=== PATIENT | male | born 1930 | race Caucasian/White ===

== ENCOUNTER 2016-07-15 09:50 | Emergency (ER) | payer MEDICARE ==
[2016-07-15 09:50] VITALS: BMI 20.2
[2016-07-15] MEDS ORDERED: SODIUM CHLORIDE 0.9% 3 ML FLUSH FLUSH PRN (09:55)
[2016-07-15] MEDS ORDERED: ONDANSETRON HCL 4 MG/2 ML VIAL IV ONE (10:04)
[2016-07-15] MEDS ORDERED: HYDROmorphone 1 MG INJECTION IV ONE (10:04)
--- NOTE | 2016-07-15 10:08 | EDPRACDOC ---
- General Information Stated Complaint: VOMITING,DIZZINESS Time Seen by Provider: 07/15/16 09:55 Information Source: Patient Mode Of Arrival: Ambulance Home Medications: Home Medications Amlodipine [Norvasc] 5 mg PO DAILY 03/08/15 Ascorbic Acid [Vitamin C] 250 mg PO BID #120 tablet 08/12/15 Gabapentin [Neurontin] 800 mg PO TID 05/13/16 Bethanechol [Urecholine] 25 mg PO ACHS #60 tab 05/20/16 Albuterol/Ipratropium Neb [Duoneb] 3 ml NEB Q3H PRN #30 nebu 06/14/16 Albuterol/Ipratropium Neb [Duoneb] 3 ml NEB RTQ6 #30 nebu 06/14/16 Ensure [Ensure Plus (Chocolate)] 240 ml PO 1000,1400 #60 can 06/14/16 Morphine Sulfate 7.5 - 15 mg PO BID PRN #10 tablet 06/14/16 Zaleplon [Sonata] 10 mg PO HS PRN #30 capsule 06/14/16 Levalbuterol [Xopenex Hfa] 1 puff INH Q6 07/15/16 Levofloxacin [Levaquin] 750 mg PO DAILY #10 tab 07/15/16 Pantoprazole Sodium [Protonix] 40 mg PO HS 07/15/16 Promethazine [Phenergan] 25 mg PO Q6-8H PRN #20 tab 07/15/16 Allergies/Adverse Reactions: Allergies Allergy/AdvReac Type Severity Reaction Status Date / Time latex Allergy Rash-Locali Verified 07/15/16 10:21 zed - History of Present Illness 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 HE STATES THAT HE TAKES MORPHINE DAILY FOR CHRONIC BACK PAIN AND HAS NOT HAD ANY SINCE YESTERDAY AND HASNT HAD ANY OF HIS MEDICATIONS SINCE YESTERDAY DUE TO N/V. PT IS WRITHING AROUND IN THE BED AND STATES HE DOES THIS ON A NORMAL BASIS DUE TO HIS CHRONIC BACK PAIN. PT'S SPEECH DOES SEEM MILDLY SLURRED BUT DO NOT KNOWN HIS BASELINE. PUPILS ARE CONSTRICTED AT THIS TIME. Symptoms Occured: Reports: Spontaneous Duration: Reports: Since Onset, Episodes of Vomiting (1-2) Emesis: Reports: Bilious Recent: Reports: None Pain Quality: Reports: Aching Pain Severity: Moderate (CHRONIC BACK PAIN) Associated Signs and Symptoms: Reports: Nausea, Vomiting Oral Intake: Decreased Urinary Output: Normal ED Past Medical History - History Reviewed Yes Nurses notes reviewed and agree except as marked Travel Outside of [place] in the Last 3 Months?: No - Patient Medical History Neurological History: Denies: Cerebrovascular Accident, Seizures Cardiac History: Reports: Coronary Artery Disease, Atrial Fibrillation, Hypertension, Congestive Heart Failure, Heart Attack (1991), Hypercholesterolemia, Valvular Heart Disease Respiratory History: Reports: COPD, Pneumonia, Emphysema. Denies: Asthma, Pulmonary Embolism GI/ History: Reports: Renal Disease, Renal Failure, Urinary Tract Infection, Gastroesophageal Reflux, Ulcer, Diverticulosis. Denies: Pancreatitis Musculoskeletal History: Reports: Arthritis Psychological History: Reports: Depression, Anxiety. Denies: Substance Use Disorder Systemic History: Reports: Anemia. 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 Morphine pump placed in removed.). Denies: Tonsillectomy/Adnoidectomy - Family Medical History Reports: Hypertension, Cardiac Disorders (mother with [place]) - Social Medical History Smoking Status: Former smoker Social History: Denies: Substance Use Disorder ETOH: None Substance Abuse: None Lives With: Other Lives In: Home EDM Review of Systems - Review of Systems ROS Negative Except as Marked: Yes All systems reviewed and were negative except as marked ROS Unobtainable: Yes Hx Limited due to age/level of understanding of patient ( HPI DIFFICULT, PT POOR HISTORIAN) Constitutional: No Symptoms Reported. negative: Fever, Chills, Weakness, Fatigue, Loss of Appetite Eyes: No Symptoms Reported. negative: Redness, Blurred Vision, Double Vision, Discharge, Pain, Light Sensitive, Photophobia Ears: No Symptoms Reported. negative: Pain, Hearing Loss, Drainage, Ear Pulling Throat: No Symptoms Reported. negative: Pain, Swelling Nose: No Symptoms Reported. negative: Congestion, Bleeding, Discharge, Injection, Swelling, Deformity, Ecchymosis, Tender, Abrasion, Laceration Mouth: No Symptoms Reported. negative: Pain, Drooling Respiratory: No Symptoms Reported. negative: Cough, Brassy Cough, Barky Cough, Shortness of Breath, Wheezing, Hemoptysis Cardiovascular: No Symptoms Reported. negative: Chest Pain, Palpitations, Syncope, Edema, Orthopnea, PND, Skin Mottling, Cyanosis Gastrointestinal: No Symptoms Reported. negative: Pain, Constipation, Nausea, Vomiting, Diarrhea, Melena, Formula Intolerance Genitourinary: No Symptoms Reported. negative: Dysuria, Hematuria, Frequency, Discharge, Bleeding, Testicular Pain, Neurological: No Symptoms Reported. negative: Headache, Dizziness, Seizure, Numbness, Weakness, Speech Difficulty, Gait Difficulty Musculoskeletal: Back (CHRONIC BACK PAIN, NO PAIN MEDS IN 1-2 DAYS). negative: Arm, Ankle, Chestwall, Elbow, Forearm, Femur, Foot, Hand, Hip, Knee, Leg, Neck, Pelvis, Ribs, Shoulder, Wrist Integumentary: No Symptoms Reported. negative: Itching, Rash, Bruising, Wound Allergic/Immunologic: No Symptoms Reported. negative: Hives, Itching Hematologic: No Symptoms Reported. negative: Lymphadenopathy, Easy Bruising, Easy Bleeding Endocrine: No Symptoms Reported. negative: Weight Gain, Weight Loss Psychiatric: No Symptoms Reported. negative: Anxiety, Depression, Hallucinations, Insomnia, Suicidal - Physical Exam Constitutional: Alert (UNCOMFORTABLE) Oriented to: Time, Person, Place Last recorded Vital Signs: Oxygen Pulse Oxygen Saturation O2 Device Oxygen Flow Rate Fraction of Inspired Oxygen ( FIO2) - HEENT Head: Normal Eye Exam: Normal Oropharynx: Normal Tympanic Membrane: Normal ENT EAC: Normal TMJ: Normal Nose: No Symptoms Reported Neck: Normal - Respiratory/Cardiovascular Respiratory: Normal - CTA (BBS clear to auscultation without adventitious sounds ) Cardiovascular: Normal - GI Auscultation: Normal Palpation: Normal Tenderness: Non tender Finn's Sign: Negative Stool: Brown - Bladder: Normal - Musculoskeletal Back: Lumbar TTP Extremities: Normal - Integumentary Skin: Normal Lymphatics: Normal - Neurologic Memory Impaired: Normal Motor Function: Normal Cranial Nerve: Normal, Other (CN II-XII INTACT) Cerebellar: Other (WRITHING AROUND IN BED DIFFICULT TO TEST) Mood Description: Normal Thought: Coherent Perception: Normal - Differential Diagnosis Pneumonia, Urinary tract infection, Other (VERTIGO, CVA,TIA, NARCOTIC WITHDRAWAL ) - Re-evaluation Re-evaluation 1 Re-evaluation Time: 11:10 (PT SIGNIFICANTLY BETTER AFTER IV DILAUDID. ) Re-evaluation 2 Re-evaluation Time: 12:36 (PT APPEARS TO BE FEELING BETTER NOT WRITHING AROUND IN BED. WILL START LEVAQUIN PO FOR PNEUMONIA ON CXR.) - Results 07/15/16 10:10 07/15/16 10:10 - EKG EKG #1 EKG Time: 10:06 -: Yes EKG interpreted by me Rate: bpm: 86 [place]: LAD Rhythm: NSR Block: RBBB (INCOM) Hypertrophy: LVH ST: Normal - Diagnostic Imaging CT HD Image interpreted by: Radiologist IMPRESSION: 1. No acute intracranial abnormality. Stable atrophy and chronic white matter disease. Mild mucosal thickening with partial opacification left ethmoid air cells. CXR Image interpreted by: Radiologist IMPRESSION: Small focus of airspace disease in the right upper lobe concerning for pneumonia. The for Decision Time to Discharge: 12:39 - Departure Disposition: Home Condition: Stable Final Diagnosis: Narcotic withdrawal Right upper lobe pneumonia Qualifiers: Pneumonia type: due to unspecified organism Qualified Code(s): J18.1 - Lobar pneumonia, unspecified organism Instructions: Bacterial Pneumonia (ED), Acute Nausea and Vomiting (ED) Education/Counseling Given To: Patient Education/Counseling Given Regarding: Diagnosis, Treatment, Prognosis, Follow Up Referrals: Lyle Barger MD [Primary Care Provider] - One Week Prescriptions: Levofloxacin [Levaquin] 750 mg PO DAILY #10 tab Promethazine [Phenergan] 25 mg PO Q6-8H PRN #20 tab PRN Reason: Nausea/Vomiting Additional Instructions: RETURN FOR WORSE OR DIFFERENT SYMPTOMS.
[2016-07-15 10:25] LABS: AUTOMATED BASOPHIL 0.4 % (0-2); AUTOMATED EOSINOPHIL 0.3 % (0-5); AUTOMATED LYMPH 10.8 % (17-44); AUTOMATED MONOCYTE 4.5 % (3-10)
[2016-07-15 10:26] VITALS: TEMP 97.9
[2016-07-15 10:34] LABS: BLOOD UREA NITROGEN 28 MG/DL (9-20); CALCIUM 9.6 MG/DL (8.4-10.2); CALCULATED OSMOLALITY 278 MOs/Kg (270-290); CHLORIDE 103 mEq/L (98-107); GLUCOSE 112 MG/DL (70-99); SODIUM LEVEL 141 mEq/L (137-146); TOTAL PROTEIN 7.5 G/DL (6.3-8.2)
[2016-07-15 10:39] LABS: PARTIAL THROMB. TIME 27.4 SEC (22-35)
--- NOTE | 2016-07-15 10:49 | DIRPT ---
CLINICAL DATA: Vomiting, dizziness for 1 day EXAM: CT HEAD WITHOUT CONTRAST TECHNIQUE: Contiguous axial images were obtained from the base of the skull through the vertex without intravenous contrast. COMPARISON: Brain MRI 05/22/2015 FINDINGS: No skull fracture is noted. Mild mucosal thickening with partial opacification left ethmoid air cells. The mastoid air cells are unremarkable. No intracranial hemorrhage, mass effect or midline shift. Mild cerebral atrophy again noted. Stable periventricular and patchy subcortical chronic white matter disease. Atherosclerotic calcifications of carotid siphon again noted. No acute cortical infarction. No mass lesion is noted on this unenhanced scan. IMPRESSION: 1. No acute intracranial abnormality. Stable atrophy and chronic white matter disease. Mild mucosal thickening with partial opacification left ethmoid air cells. Electronically Signed By: Adam Patricio M.D. On: 07/15/2016 10:46
--- NOTE | 2016-07-15 10:52 | DIRPT ---
CLINICAL DATA: Vomiting, dizziness, nausea EXAM: PORTABLE CHEST 1 VIEW COMPARISON: CT chest 06/10/2016 FINDINGS: There is a small area of focal airspace opacity in the right upper lobe which may reflect developing pneumonia. There is no pleural effusion or pneumothorax. The heart and mediastinal contours are unremarkable. The osseous structures are unremarkable. IMPRESSION: Small focus of airspace disease in the right upper lobe concerning for pneumonia. The for Electronically Signed By: Destiny Boo On: 07/15/2016 10:49
[2016-07-15 11:38] LABS: RBC/URINE 0-2 (0-2); WBC/URINE 0-2 (0-2)
[2016-07-15 11:40] LABS: LEUKOCYTES/URINE NEG (NEGATIVE); NITRITE/URINE NEG (NEGATIVE); URINE OCCULT BLOOD NEG (NEG/TRACE)
[2016-07-15] MEDS ORDERED: LEVOFLOXACIN 750 MG TAB PO ONE (12:35)
[2016-07-15 13:01] VITALS: BP 183/88; PULSE 82
[2016-07-15] MEDS ORDERED: SODIUM CHLORIDE 0.9% 3 ML FLUSH FLUSH SCH (18:00)
== END 2016-07-15 13:13 | disposition home or self-care (01) ==
LOC: ED 09:50
DX: F11.23 Opioid dependence with withdrawal (principal); T40.2X5A Adverse effect of other opioids, initial encounter; J18.9 Pneumonia, unspecified organism; M54.9 Dorsalgia, unspecified; G89.29 Other chronic pain; I25.10 Atherosclerotic heart disease of native coronary artery without angina pectoris; I48.91 Unspecified atrial fibrillation; I10 Essential (primary) hypertension; E78.00 Pure hypercholesterolemia, unspecified; I50.9 Heart failure, unspecified; J44.9 Chronic obstructive pulmonary disease, unspecified; K21.9 Gastro-esophageal reflux disease without esophagitis; Z79.899 Other long term (current) drug therapy
CPT/HCPCS: 36415; 70450; 71010; 80053; 81001; 83880; 84484; 85025; 85610; 85730; 93005; 96374; 96375; 99285; A9270; J1170; J2405; J3490